=== PATIENT | male | born 1990 | race Caucasian/White ===

== ENCOUNTER 2021-01-09 10:59 | Emergency (ER) | payer OTHER, SELFPAY ==
[2021-01-09 11:03] VITALS: BP 147/96; PULSE 87; RESP 18; TEMP 36.1; O2SAT 97; BMI 35.0
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
== END 2021-01-09 12:24 | disposition home or self-care (01) ==
PROVIDERS: Emergency Provider Emergency Medicine
DX: S06.0X0A Concussion without loss of consciousness, initial encounter (principal); S80.12XA Contusion of left lower leg, initial encounter; M79.662 Pain in left lower leg; G44.309 Post-traumatic headache, unspecified, not intractable; M79.602 Pain in left arm; V43.52XA Car driver injured in collision with other type car in traffic accident, initial encounter; Y93.9 Activity, unspecified; Y92.410 Unspecified street and highway as the place of occurrence of the external cause; Y99.9 Unspecified external cause status; Z79.899 Other long term (current) drug therapy
CPT/HCPCS: 99283